=== PATIENT | female | born 1985 | race Asian ===

== ENCOUNTER 2017-03-16 11:27 | Emergency (ER) | payer MEDICAID ==
[~2017-03-16] VITALS: Ht 170.2 cm; Wt 69.2 kg
[2017-03-16 11:36] VITALS: BP 134/98
--- NOTE | 2017-03-16 11:40 | NUR ---
PATIENT PRESENTS TO ED FOR MED REFILL . PT STATES SHE'S TAKING 2 MEDICATION FOR DM; TAKING METFORMIN BUT UNABLE TO RECALL THE OTHER MEDICINE;HX OF DM;. DENIES N/V/D; SKIN IS PINK/WARM/DRY; AAOX4 WITH EVEN AND STEADY GAIT; LUNGS CLEAR BL; HR EVEN AND REGULAR; PT DENIES ANY FEVER, CP, SOB, OR COUGH AT THIS TIME; PATIENT STATES PAIN OF 0/10 AT THIS TIME;PATIENT POSITIONED FOR COMFORT;ER MD MADE AWARE OF PT STATUS.
--- NOTE | 2017-03-16 11:40 | NUR ---
PT AMBULATED TO CHAIR A.
--- NOTE | 2017-03-16 12:00 | NUR ---
DR PRUETT EVALUATING PT.
--- NOTE | 2017-03-16 12:03 | NUR ---
PT WENT HOME TO TAKE PRESCRIPTION FOR HER MEDICATION REFILL; DR PRUETT AND CHARGE NURSE AWARE;
--- NOTE | 2017-03-16 12:23 | NUR ---
PT BACK FROM HOME;PRESCRIPYION OF GLIPIZIDE 5 MG AND METFORMIN;DR PRUETT TALKING TO PT.
[2017-03-16 12:33] VITALS: BP 118/86
--- NOTE | 2017-03-16 12:33 | NUR ---
Patient discharged with v/s stable. Written and verbal after care instructions given and explained. Patient alert, oriented and verbalized understanding of instructions. Ambulatory with steady gait. All questions addressed prior to discharge. ID band removed. Patient advised to follow up with PMD. Rx of METFORMIN AND GLYBURIDE given. Patient educated on indication of medication including possible reaction and side effects. Opportunity to ask questions provided and answered.
== END 2017-03-16 12:33 | disposition home or self-care (01) ==
LOC: MED 11:27
DX: Z76.0 Encounter for issue of repeat prescription (principal); E11.9 Type 2 diabetes mellitus without complications; R03.0 Elevated blood-pressure reading, without diagnosis of hypertension
CPT/HCPCS: 82948; 99283